=== PATIENT | female | born 1935 | race Caucasian/White ===

== ENCOUNTER 2017-02-01 13:49 | Emergency (ER) | payer OTHER, MEDICARE ==
[~2017-02-01] VITALS: Ht 157.5 cm; Wt 94.3 kg
[~2017-02-01 13:49] MED LIST: ACCUPRIL20 MG; AMITRIPTYLINE H10 MG PO; AMLODIPINE BESYL5 MG PO; BUPROPION XL150 MG PO; CALCITRIOL; CALCITRIOL0.25 MCG PO; CENTRUM SILVER1 EAC3 PO; CENTRUM SILVER1 EAC4 PO; CETIRIZINE HCL10 M2 PO; COUMADIN3 MG PO; CRESTOR20 MG; CRESTOR20 MG PO; DOXYCYCLINE HY100 M1 PO; FLONASE16 G1 BOTH NARES; FLONASE16 GM; FLOVENT 11120 INHALA; FLOVENT 22120 INHALA IH; GLIMEPIRIDE2 MG; GLIMEPIRIDE2 MG PO; HYDROCHLOROTHIA25 MG; HYDROCHLOROTHIA25 MG PO; JANTOVEN2.5 MG PO; JANTOVEN3 MG PO; JANUVIA25 M1 PO; LOVENOX100 MG/1 M SC; LYRICA50 MG PO; MECLIZINE HCL25 MG PO; METOPROLOL SUCC25 MG PO; METOPROLOL SUCC50 MG PO; MICRO-K10 ME2 PO; NAPROSYN500 MG PO; NEXIUM40 MG; NEXIUM40 MG PO; NORVASC5 MG PO; PERCOCET 5/31 TABLET PO; POTASSIUM CHLO10 ME3 PO; ROBITUSSIN AC,T10 ML PO; TYLENOL EXTRA500 MG PO; TYLENOL WITH C1 EACH PO; ULTRAM ER 100100 MG; ULTRAM ER100 MG PO; WARFARIN; WARFARIN SODIU2.5 MG PO; WARFARIN SODIUM3 MG PO; ZITHROMAX Z-PA250 MG PO
[2017-02-01 14:33] LABS: EOSINOPHIL (%) 0.5 % (0-5); HEMATOCRIT 31.2 % (36.0-46.0); IMMATURE GRANULOCYTE (%) 0.3 % (0.0-0.7); INSTRUMENT ABS NEUTROPHIL CT 5.3 K/uL; LYMPHOCYTE COUNT 1.3 K/uL (1.0-2.8); MCH 29.2 PG (29.0-34.0); MCHC 32.1 G/DL (30.0-36.0); MONOCYTE COUNT 0.7 K/uL (0-0.8); NEUTROPHIL (%) 71.8 % (45-76); NEUTROPHIL COUNT 5.3 K/uL (1.8-6.4); PLATELET COUNT 284 K/uL (156-360); RBC DIS.WIDTH-CV 14.5 % (11.8-14.6); RBC DIS.WIDTH-SD 48.1 % (39-53); RED BLOOD COUNT 3.43 M/uL (3.80-5.20); WHITE BLOOD COUNT 7.4 K/uL (4.1-10.2)
[2017-02-01 14:42] LABS: CHLORIDE 102 mEq/L (99-109); SODIUM 138 mEq/L (136-147)
[2017-02-01 14:43] LABS: GLUCOSE 213 mg/dL (70-99)
[2017-02-01 14:44] LABS: ADD MIUA? YES; BILIRUBIN NEGATIVE; BLOOD NEGATIVE; COLOR YELLOW ((YELLOW)); GLUCOSE (STRIP) 50; KETONES NEGATIVE; LEUKOCYTES NEGATIVE; NITRITE NEGATIVE; PROTEIN (STRIP) 100; SPECIFIC GRAVITY 1.016 (1.000-1.030); UROBILINOGEN 0.2 MG/DL (0.2-1.0)
[2017-02-01 14:45] LABS: ANION GAP 8 MEQ/L (2-14)
[2017-02-01 14:46] LABS: BACTERIA NONE SEEN /HPF; EPITHELIAL CELLS 1+ /HPF; MUCUS TRACE /LPF; RED BLOOD CELLS 0-5 /HPF (0-5); UCUL ADDED? NO; WHITE BLOOD CELLS 0-5 /HPF (0-5)
[2017-02-01 14:47] LABS: GFR ESTIMATE (CALCULATED) 46 mL/min/
[2017-02-01 14:48] LABS: UREA NITROGEN (BUN) 19 mg/dL (9-23)
[2017-02-01 19:04] VITALS: BP 156/66
== END 2017-02-01 19:05 ==
LOC: EME 13:49
PROVIDERS: Emergency Medicine
DX: S39.011A Strain of muscle, fascia and tendon of abdomen, initial encounter (principal); X58.XXXA Exposure to other specified factors, initial encounter; E10.22 Type 1 diabetes mellitus with diabetic chronic kidney disease; I12.9 Hypertensive chronic kidney disease with stage 1 through stage 4 chronic kidney disease, or unspecified chronic kidney disease; N18.9 Chronic kidney disease, unspecified; E78.5 Hyperlipidemia, unspecified; Z86.73 Personal history of transient ischemic attack (TIA), and cerebral infarction without residual deficits; K21.9 Gastro-esophageal reflux disease without esophagitis; J45.909 Unspecified asthma, uncomplicated; Z79.4 Long term (current) use of insulin; Z88.0 Allergy status to penicillin; Z79.01 Long term (current) use of anticoagulants; Z88.1 Allergy status to other antibiotic agents; Z88.2 Allergy status to sulfonamides
CPT/HCPCS: 74177; 80048; 81003; 85025; 85610; 99281; 99284; J1885; J2270; J7030

== ENCOUNTER → 2017-02-21 | Outpatient (CLI) | payer OTHER, MEDICARE | LOC: MRI 12:56 → RAD 13:30 | DX: S76.012D Strain of muscle, fascia and tendon of left hip, subsequent encounter (principal); M67.852 Other specified disorders of synovium, left hip | CPT/HCPCS: 73721 ==